=== PATIENT | female | born 1960 | race Caucasian/White ===

== ENCOUNTER 2016-07-16 15:37 | Inpatient (IN) | payer MEDICARE, OTHER ==
[~2016-07-16] VITALS: Ht 160 cm; Wt 51.0 kg
[2016-07-16 16:43] LABS: BASO % 0.1 % (0.1-1.2); EOS % 0.2 % (0.7-5.8); GRAN # 16.5 10_X3_uL (1.6-6.1); GRAN % 91.9 % (34.0-71.1); HEMATOCRIT 34.5 % (34-45); HEMOGLOBIN 11.9 g/dL (11.2-15.7); LYMPH # 0.8 10_X3_uL (1.2-3.7); LYMPH % 4.5 % (19.3-51.7); MEAN CORPUSCULAR HEMOGLOBIN 32.2 pg (27.0-33.0); MEAN CORPUSCULAR HGB CONC 34.5 g/dL (32.0-36.0); MEAN CORPUSCULAR VOLUME 93.5 fL (79-95); MEAN PLATELET VOLUME 9.9 fl (7.5-11.5); MONO # 0.6 10_X3_uL (0.2-0.9); MONO % 3.3 % (4.7-12.5); PLATELET COUNT 322 x10_3/uL (182-369); RED BLOOD COUNT 3.69 x10_6/uL (3.9-5.2); RED CELL DISTRIBUTION WIDTH 12.6 % (11.7-14.4)
[2016-07-16 16:58] LABS: CALCIUM 8.8 mg/dL (8.7-10.7); CREATININE 1.2 mg/dL (0.6-1.3)
[2016-07-17 02:23] LABS: ALBUMIN 4.3 gm/dL (3.4-5.0); ALKALINE PHOSPHATASE 76 U/L (50-136); ALT/SGPT 15 U/L (3.5-33.9); AST/SGOT 24 U/L (7.04-26.96); BILIRUBIN,TOTAL 0.22 mg/dL (0.0-1.0); TOTAL PROTEIN 6.7 gm/dL (6.4-8.2)
[2016-07-17 02:25] LABS: BILIRUBIN,DIRECT < 0.20 mg/dL (0.0-0.30)
[2016-07-17 04:39] LABS: URINE BILIRUBIN NEGATIVE (NEGATIVE); URINE BLOOD TRACE (NEGATIVE); URINE GLUCOSE (UA) NORMAL (NORMAL); URINE KETONE NEGATIVE (NEGATIVE); URINE LEUKOCYTE ESTERASE TRACE (NEGATIVE); URINE NITRATE NEGATIVE (NEGATIVE); URINE PROTEIN NEGATIVE (NEGATIVE); URINE RBC 0-5 /[HPF] (0-2); URINE WBC 0-5 /[HPF] (0-5); UROBILINOGEN NORMAL mg/dL (<1.0)
[2016-07-17 07:47] LABS: BASO % 0.2 % (0.1-1.2); EOS % 0.2 % (0.7-5.8); GRAN # 9.9 10_X3_uL (1.6-6.1); GRAN % 77.2 % (34.0-71.1); HEMATOCRIT 28.2 % (34-45); HEMOGLOBIN 9.6 g/dL (11.2-15.7); LYMPH # 1.8 10_X3_uL (1.2-3.7); LYMPH % 13.9 % (19.3-51.7); MEAN CORPUSCULAR HEMOGLOBIN 31.8 pg (27.0-33.0); MEAN CORPUSCULAR VOLUME 93.4 fL (79-95); MEAN PLATELET VOLUME 10.1 fl (7.5-11.5); MONO # 1.1 10_X3_uL (0.2-0.9); MONO % 8.5 % (4.7-12.5); PLATELET COUNT 264 x10_3/uL (182-369); RED BLOOD COUNT 3.02 x10_6/uL (3.9-5.2); RED CELL DISTRIBUTION WIDTH 12.3 % (11.7-14.4); WHITE BLOOD COUNT 12.8 x10_3/uL (4.0-10.0)
[2016-07-17 07:53] LABS: CALCIUM 8.3 mg/dL (8.7-10.7); CARBON DIOXIDE 18 mmol/L (21-32); CREATININE 0.9 mg/dL (0.6-1.3); GLUCOSE,RANDOM 98 mg/dL (70-99); POTASSIUM 4.6 mmol/L (3.5-5.1); SODIUM 137 mmol/L (136-145)
[2016-07-17 08:18] LABS: BLOOD UREA NITROGEN 24 mg/dL (7-18)
[2016-07-17 12:40] LABS: ARTERIAL BLD GAS O2 SATURATION 97.1 % (94-98); ARTERIAL BLOOD GAS BASE EXCESS -4.7 mmol/L (-2.0-3.0); ARTERIAL BLOOD GAS HCO3 19.5 mmol/L (22-26); ARTERIAL BLOOD GAS PCO2 34.8 mmHg (32-45); ARTERIAL BLOOD GAS pH 7.37 (7.35-7.45)
[2016-07-17 12:51] LABS: INR 1.1 (0.9-1.1)
[2016-07-18 06:46] LABS: ALBUMIN 3.3 gm/dL (3.4-5.0); ALKALINE PHOSPHATASE 78 U/L (50-136); ALT/SGPT 24 U/L (3.5-33.9); AST/SGOT 18 U/L (7.04-26.96); BILIRUBIN,TOTAL 0.22 mg/dL (0.0-1.0); BLOOD UREA NITROGEN 13 mg/dL (7-18); CALCIUM 8.4 mg/dL (8.7-10.7); CARBON DIOXIDE 21 mmol/L (21-32); CREATININE 0.8 mg/dL (0.6-1.3); GLUCOSE,RANDOM 118 mg/dL (70-99); SODIUM 140 mmol/L (136-145); TOTAL PROTEIN 5.8 gm/dL (6.4-8.2)
[2016-07-18 07:01] LABS: HEMATOCRIT 27.8 % (34-45); HEMOGLOBIN 9.2 g/dL (11.2-15.7); MEAN CORPUSCULAR HEMOGLOBIN 31.1 pg (27.0-33.0); MEAN CORPUSCULAR HGB CONC 33.1 g/dL (32.0-36.0); MEAN CORPUSCULAR VOLUME 93.9 fL (79-95); MEAN PLATELET VOLUME 10.7 fl (7.5-11.5); RED BLOOD COUNT 2.96 x10_6/uL (3.9-5.2); RED CELL DISTRIBUTION WIDTH 12.6 % (11.7-14.4); WHITE BLOOD COUNT 17.7 x10_3/uL (4.0-10.0)
[2016-07-19 06:49] LABS: CALCIUM 8.8 mg/dL (8.7-10.7); CARBON DIOXIDE 23 mmol/L (21-32); CREATININE 0.7 mg/dL (0.6-1.3); GLUCOSE,RANDOM 99 mg/dL (70-99); POTASSIUM 4.8 mmol/L (3.5-5.1); SODIUM 142 mmol/L (136-145)
[2016-07-19 07:02] LABS: BASO % 0.2 % (0.1-1.2); EOS # 0.1 10_X3_uL (0.0-0.4); EOS % 0.6 % (0.7-5.8); GRAN # 8.2 10_X3_uL (1.6-6.1); GRAN % 80.1 % (34.0-71.1); HEMATOCRIT 27.3 % (34-45); HEMOGLOBIN 8.9 g/dL (11.2-15.7); LYMPH # 1.3 10_X3_uL (1.2-3.7); LYMPH % 12.7 % (19.3-51.7); MEAN CORPUSCULAR HEMOGLOBIN 30.9 pg (27.0-33.0); MEAN CORPUSCULAR HGB CONC 32.6 g/dL (32.0-36.0); MEAN CORPUSCULAR VOLUME 94.8 fL (79-95); MEAN PLATELET VOLUME 10.5 fl (7.5-11.5); MONO # 0.7 10_X3_uL (0.2-0.9); MONO % 6.4 % (4.7-12.5); PLATELET COUNT 248 x10_3/uL (182-369); RED BLOOD COUNT 2.88 x10_6/uL (3.9-5.2); RED CELL DISTRIBUTION WIDTH 12.7 % (11.7-14.4); WHITE BLOOD COUNT 10.3 x10_3/uL (4.0-10.0)
[2016-07-19 07:14] LABS: BLOOD UREA NITROGEN 6 mg/dL (7-18)
[2016-07-19 07:23] LABS: FREE T4 1.04 ng/dL (0.93-1.7); THYROID STIMULATING HORMONE 0.647 uIU/mL (0.34-4.82)
[2016-07-20 06:47] LABS: HEMATOCRIT 27.8 % (34-45); HEMOGLOBIN 9.3 g/dL (11.2-15.7); MEAN CORPUSCULAR HEMOGLOBIN 31.3 pg (27.0-33.0); MEAN CORPUSCULAR HGB CONC 33.5 g/dL (32.0-36.0); MEAN CORPUSCULAR VOLUME 93.6 fL (79-95); MEAN PLATELET VOLUME 10.5 fl (7.5-11.5); RED BLOOD COUNT 2.97 x10_6/uL (3.9-5.2); RED CELL DISTRIBUTION WIDTH 12.7 % (11.7-14.4); WHITE BLOOD COUNT 6.3 x10_3/uL (4.0-10.0)
[2016-07-20 06:50] LABS: BLOOD UREA NITROGEN 9 mg/dL (7-18); CALCIUM 8.8 mg/dL (8.7-10.7); CARBON DIOXIDE 21 mmol/L (21-32); CREATININE 0.8 mg/dL (0.6-1.3); GLUCOSE,RANDOM 119 mg/dL (70-99); POTASSIUM 3.9 mmol/L (3.5-5.1); SODIUM 142 mmol/L (136-145)
== END 2016-07-20 13:50 | disposition other institution (70) | DRG 391 ==
LOC: ER 15:37 → MS 19:34 → UNDODEPER 07-20 20:43
PROVIDERS: Emergency Medicine; ADMIT Family Medicine
DX: K52.9 Noninfective gastroenteritis and colitis, unspecified (principal); J15.0 Pneumonia due to Klebsiella pneumoniae; J44.0 Chronic obstructive pulmonary disease with (acute) lower respiratory infection; R55 Syncope and collapse; D64.9 Anemia, unspecified; I95.9 Hypotension, unspecified; E86.0 Dehydration; R00.0 Tachycardia, unspecified; I10 Essential (primary) hypertension; F41.9 Anxiety disorder, unspecified; F29 Unspecified psychosis not due to a substance or known physiological condition; R10.12 Left upper quadrant pain; R19.7 Diarrhea, unspecified; R11.0 Nausea; R94.6 Abnormal results of thyroid function studies; R06.02 Shortness of breath; Z78.0 Asymptomatic menopausal state; F17.210 Nicotine dependence, cigarettes, uncomplicated; Z79.899 Other long term (current) drug therapy
CPT/HCPCS: 36415; 36600; 70450; 71010; 71260; 80048; 80053; 80076; 80307; 81001; 82803; 83605; 84439; 84443; 85025; 85610; 87040; 87070; 87186; 87205; 87400; 94640; 94664; 96365; 96366; 96367; 99284; 99285-25; J3420; J7050

== ENCOUNTER 2016-07-16 15:37 | Observation (INO) | payer MEDICARE, OTHER | END 2016-07-18 11:27 | disposition other institution (70) | LOC: ER 15:37 → MS 19:34 | PROVIDERS: ADMIT Family Medicine | DX: K52.9 Noninfective gastroenteritis and colitis, unspecified (principal); J44.0 Chronic obstructive pulmonary disease with (acute) lower respiratory infection; J15.0 Pneumonia due to Klebsiella pneumoniae; R55 Syncope and collapse; D64.9 Anemia, unspecified; I95.9 Hypotension, unspecified; E86.0 Dehydration; R00.0 Tachycardia, unspecified; I10 Essential (primary) hypertension; F41.9 Anxiety disorder, unspecified; F29 Unspecified psychosis not due to a substance or known physiological condition; R10.12 Left upper quadrant pain; R19.7 Diarrhea, unspecified; R11.0 Nausea; R94.6 Abnormal results of thyroid function studies; R06.02 Shortness of breath; Z78.0 Asymptomatic menopausal state; F17.210 Nicotine dependence, cigarettes, uncomplicated; Z79.899 Other long term (current) drug therapy | CPT/HCPCS: 36415; 36600; 70450; 71010; 71260; 80048; 80076; 80307; 81001; 82803; 83605; 84443; 85025; 85610; 87040; 87070; 87186; 87205; 87400; 94640; 94664; 96361; 96365; 96366; 96367; 99284; 99285-25; G0378; J7050 ==